=== PATIENT | female | born 1960 | race Caucasian/White ===

== ENCOUNTER 2019-03-21 08:17 | Outpatient (CLI) | payer BC ==
--- NOTE | 2019-03-21 12:24 | CT ---
CT CHEST AND ABODMEN WITHOUT IV CONTRAST CTA CHEST AND ABDOMEN WITH IV CONTRAST AND 3D POSTPROCESSING: Date: 03/21/2019 HISTORY: Thoracic aneurysm, dissection, and repair of aortic aneurysm. COMPARISON: 07/12/2007. FINDINGS: There is good opacification of the thoracoabdominal aorta with an intimal flap extending distal to th e left subclavian artery and extending anteriorly into the right common iliac artery. The descending thoracic aorta measures 5.0 cm in AP dimension. There is good flow in the celiac axis, SMA, renal art eries, common iliac arteries, and visualized portions of the external and iliac arteries, and JOHN. No pleural or pericardial effusions are seen. No pneumothoraces, focal areas of consolidation, or ines g nodules/masses are identified. There is a 2.0 cm low density lesion in the medial segment of the left lobe of the liver which does n ot meet criteria for a simple cyst. No calcified gallstones are seen. The spleen, pancreas, adrenal glands, and kidneys are normal. No ca lculi seen in the kidneys or visualized portions of the ureters. There are degenerative changes in the thoracolumbar spine. IMPRESSION: 1. 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 2. 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 3. 2.0 cm indeterminate liver lesion. This should be evaluated with ultrasound. POS: [facility]
[2019-03-21] MEDS ORDERED: Iopamidol-370 76% 500 ML 1 ML ONE (13:57)
== END 2019-03-21 08:18 | disposition home or self-care (01) ==
LOC: BICCT 08:17
PROVIDERS: ATTEND Specialist
DX: I71.2 Thoracic aortic aneurysm, without rupture (principal); I71.4 Abdominal aortic aneurysm, without rupture
CPT/HCPCS: 71275; 74175; Q9967